=== PATIENT | female | born 1940 | race Native Hawaiian/Other Pacific Islander ===

== ENCOUNTER 2017-11-21 13:48 | Outpatient (CLI) | payer MEDICARE ==
--- NOTE | 2017-11-22 11:26 | Mammography Report ---
Procedure Date: 11/21/2017 Accession Number: [id number] / [id number] Procedure: [facility] - Screening Mammo Dig Bilat CPT Code: FULL RESULT: EXAM: Screening Mammo Dig Bilat DATE: 11/21/2017 2:08 PM CLINICAL HISTORY: 77-year-old female presents for screening. TECHNIQUE: Bilateral CC and MLO views were obtained. COMPARISON: 11/10/2015, 11/11/2014, 11/22/2013, 11/10/2012. FINDINGS: The breasts demonstrate scattered fibroglandular densities bilaterally. Typically benign coarse calcifications are seen in both breasts. Vascular calcifications are seen in the left breast, typically benign. No suspicious masses, clustered microcalcifications, or regions of architectural distortion are identified. IMPRESSION: Benign findings RECOMMENDATION: Routine annual screening unless otherwise clinically indicated. BIRADS CATEGORY 2: Benign findings STANDARD QUALIFYING STATEMENTS: 1. This examination was reviewed with the aid of Computer-Aided Detection (CAD). 2. A negative or benign imaging report should not delay biopsy if clinically suspicious findings are present. Consider surgical consultation if warrented. More than 5% of cancers are not identified by imaging. 3. Dense breasts may obscure an underlying neoplasm.
== END 2017-11-21 13:49 | disposition home or self-care (01) ==
LOC: DI 13:48
PROVIDERS: ATTEND Internal Medicine
DX: Z12.31 Encounter for screening mammogram for malignant neoplasm of breast (principal)
CPT/HCPCS: 77067

== ENCOUNTER 2019-02-19 13:26 | Outpatient (CLI) | payer MEDICARE, OTHER ==
--- NOTE | 2019-02-19 14:24 | XRAY Report ---
Reason: CHEST PAIN, UNSPECIFIED Procedure Date: 02/19/2019 Accession Number: [id number] / [id number] Procedure: XR - Chest 2 View X-Ray CPT Code: 95705 FULL RESULT: EXAM: CHEST RADIOGRAPHY EXAM DATE: 02/19/2019 01:35 PM HISTORY: CHEST PAIN, UNSPECIFIED COMPARISON: NONE TECHNIQUE: Two Views FINDINGS: Lungs/Pleura: There is hazy increased density at the right upper lobe concerning for pneumonia. Clinically correlate. The lungs are otherwise essentially clear. No pleural effusion. Cardiomediastinal silhouette: Unremarkable accounting for technique. Other: Thoracolumbar level dextroconvex scoliosis. IMPRESSION: Right upper lobe opacity most consistent with pneumonia. Follow-up to radiographic resolution is recommended. RADIA
== END 2019-02-19 13:27 | disposition home or self-care (01) ==
LOC: DI 13:26
PROVIDERS: ATTEND Internal Medicine
DX: R91.8 Other nonspecific abnormal finding of lung field (principal)
CPT/HCPCS: 71046

== ENCOUNTER 2019-04-09 16:12 | Outpatient (CLI) | payer MEDICARE, OTHER ==
--- NOTE | 2019-04-10 20:11 | XRAY Report ---
Reason: COUGH, OTHER NONSPECIFIC ABNORMAL FINDING OF LUNG Procedure Date: 04/09/2019 Accession Number: [id number] / [id number] Procedure: XR - Chest 2 View X-Ray CPT Code: 84044 Final Report FULL RESULT: EXAM: CHEST RADIOGRAPHY EXAM DATE: 04/09/2019 04:27 PM. CLINICAL HISTORY: COUGH, OTHER NONSPECIFIC ABNORMAL FINDING OF LUNG. COMPARISON: CHEST 2 VIEW 02/19/2019 1:29 PM. TECHNIQUE: 2 views. FINDINGS: Lungs/Pleura: Biapical scarring. Left basilar scarring. No effusion. No pneumothorax. Calcified granulomas. Mediastinum: Heart and mediastinal contours are unremarkable. Other: DJD spine IMPRESSION: No active cardiopulmonary disease RADIA
== END 2019-04-09 16:13 | disposition home or self-care (01) ==
LOC: DI 16:12
PROVIDERS: ATTEND Internal Medicine
DX: R05 Cough (principal); R91.8 Other nonspecific abnormal finding of lung field
CPT/HCPCS: 71046

== ENCOUNTER 2020-07-05 12:23 | Outpatient (CLI) | payer MEDICARE, OTHER ==
--- NOTE | 2020-07-06 09:47 | Mammography Report ---
BILATERAL DIGITAL SCREENING MAMMOGRAM 3D/2D: 07/05/2020 CLINICAL: Routine screening. Comparison is made to exams dated: 11/21/2017 mammogram, 11/10/2015 mammogram, 11/11/2014 mammogram, 11/24 mammogram, 11/10/2012 mammogram, and 09/14/2011 mammogram - [facility]. The tis rebeka of both breasts is predominantly fatty. There is a new 0.5 cm x 0.3 cm focal asymmetry with an indistinct margin in the left breast at 1 o'cl ock anterior depth 6 cm from the nipple. No other significant masses, calcifications, or other findings are seen in either breast. IMPRESSION: INCOMPLETE: NEEDS ADDITIONAL IMAGING EVALUATION The new 0.5 cm x 0.3 cm focal asymmetry in the left breast is indeterminate. Additional views with p ossible ultrasound are recommended. This exam was interpreted at Station ID: [id number]. NOTE: For mammograms, a report in lay terms will be sent to the patient. Approximately 15% of breast malignancies will not be visualized mammographically. In the management of a palpable breast mass, a negative mammogram must not discourage biopsy of a clinically suspicious lesion. Electronically Signed By: Mario Alberto Powers acr/:07/05/2020 15:20:16 ACR BI-RADS Category 0: Incomplete 3340F PARENCHYMAL PATTERN: (F) - The breast(s) demonstrate(s) diffuse fatty replacement. BI-RADS CATEGORY: (0) - 0 Mammo and [place] [id number] Immediate follow-up LATERALITY: (L)
== END 2020-07-05 12:24 | disposition home or self-care (01) ==
LOC: DI 12:23
PROVIDERS: ATTEND Internal Medicine
DX: Z12.31 Encounter for screening mammogram for malignant neoplasm of breast (principal); N64.89 Other specified disorders of breast

== ENCOUNTER 2020-08-30 10:40 | Outpatient (CLI) | payer MEDICARE ==
--- NOTE | 2020-08-31 13:09 | Ultrasound Report ---
LIMITED ULTRASOUND OF LEFT BREAST: 08/30/2020 CLINICAL: Patient returns today to evaluate a focal asymmetry in the left breast. Comparison is made to exams dated: 08/30/2020 mammogram, 07/05/2020 mammogram, 11/21/2017 mammogram, 11/09 mammogram, 11/24/2013 mammogram, and 11/11/2014 mammogram - [facility]. . Color flow and real-time ultrasound of the left breast 2-4 o'clock region were performed. No ultraso und abnormality to correspond with the mammographic abnormality is identified. Banerjee scale images of t he real-time examination were reviewed. IMPRESSION: PROBABLY BENIGN There are no abnormalities seen in the left breast to correspond with the mammography findings at 2, 3, and 4 o'clock. The mammographic finding partially resolved with additional views, however since t his is a new asymmetry, follow-up mammogram and possible ultrasound in 6 months is recommended This exam was interpreted at Station ID: [id number]. Electronically Signed By: Mario Alberto Powers acr/:08/30/2020 13:25:47 Ultrasound BI-RADS: 3 Probably benign BI-RADS CATEGORY: (3) - 3 Mammo and US [id number] 7 month follow-up LATERALITY: (L)
--- NOTE | 2020-08-31 13:09 | Mammography Report ---
UNILATERAL LEFT DIGITAL DIAGNOSTIC MAMMOGRAM 3D/2D: 08/30/2020 CLINICAL: Patient returns for additional imaging over a suspected mass in the left breast. Comparison is made to exams dated: 07/05/2020 mammogram, 11/21/2017 mammogram, 11/10/2015 mammogram, 2014 mammogram, and 11/24/2013 mammogram - [facility]. The tissue of left breast is predominantly fatty. There is a 0.3 cm x 0.4 cm oval high density asymmetry in the left breast middle depth central to the nipple seen on the craniocaudal view only 7 cm from the nipple. This is seen on additional views but is less prominent. No other significant masses or calcifications are seen in the breast. IMPRESSION: INCOMPLETE: NEEDS ADDITIONAL IMAGING EVALUATION The 0.3 cm x 0.4 cm oval high density asymmetry in the left breast is indeterminate. An ultrasound i s recommended. US will be performed and dictated separately. This exam was interpreted at Station ID: [id number]. NOTE: For mammograms, a report in lay terms will be sent to the patient. Approximately 15% of breast malignancies will not be visualized mammographically. In the management of a palpable breast mass, a negative mammogram must not discourage biopsy of a clinically suspicious lesion. Electronically Signed By: Mario Alberto Powers acr/:08/30/2020 13:21:28 ACR BI-RADS Category 0: Incomplete 3340F PARENCHYMAL PATTERN: (F) - The breast(s) demonstrate(s) diffuse fatty replacement. BI-RADS CATEGORY: (0) - 0 Ultrasound [id number] Immediate follow-up LATERALITY: (B)
== END 2020-08-30 10:41 | disposition home or self-care (01) ==
LOC: DI 10:40
PROVIDERS: ATTEND Internal Medicine
DX: R92.8 Other abnormal and inconclusive findings on diagnostic imaging of breast (principal)

== ENCOUNTER 2020-09-15 14:36 | Outpatient (CLI) | payer MEDICARE ==
[2020-09-15 15:00] LABS: CALCIUM 9.5 mg/dL (8.5-10.3); CREATININE 1.1 mg/dL (0.4-1.0); POTASSIUM 3.3 mmol/L (3.5-5.0)
[2020-09-15 20:17] LABS: ESTIMATED AVERAGE GLUCOSE 171 mg/dL (70-100); HEMOGLOBIN A1c% 7.6 % (4.27-6.07)
== END 2020-09-15 14:37 | disposition home or self-care (01) ==
LOC: LAB 14:36
PROVIDERS: ATTEND Internal Medicine
DX: E11.9 Type 2 diabetes mellitus without complications (principal); Z79.899 Other long term (current) drug therapy
CPT/HCPCS: 36415; 80048; 83036

== ENCOUNTER 2021-08-24 08:00 | Outpatient (CLI) | payer MEDICARE ==
[2021-08-24 17:21] LABS: BASOPHILS # (AUTO) 0.1 10^3/uL (0.0-0.1); BASOPHILS % (AUTO) 0.9 %; EOSINOPHILS # (AUTO) 0.4 10^3/uL (0.0-0.7); EOSINOPHILS % (AUTO) 6.6 %; HCT - HEMATOCRIT 41.2 % (37.0-47.0); HGB - HEMOGLOBIN 14.3 g/dL (12.0-16.0); LYMPHOCYTES # (AUTO) 2.5 10^3/uL (1.5-3.5); LYMPHOCYTES % (AUTO) 37.1 %; MEAN CORPUSCULAR HEMOGLOBIN 31.6 pg (27.0-31.0); MEAN CORPUSCULAR HGB CONC 34.7 g/dL (32.0-36.0); MEAN CORPUSCULAR VOLUME 90.9 fL (81.0-99.0); MEAN PLATELET VOLUME 9.3 fL (7.9-10.8); MONOCYTES # (AUTO) 0.6 10^3/uL (0.0-1.0); MONOCYTES % (AUTO) 8.9 %; NEUTROPHILS # (AUTO) 3.1 10^3/uL (1.5-6.6); NEUTROPHILS % (AUTO) 46.3 %; PLT - PLATELET COUNT 271 10^3/uL (130-450); RED BLOOD COUNT 4.53 10^6/uL (4.20-5.40); RED CELL DISTRIBUTION WIDTH 12.3 % (12.0-15.0); WHITE BLOOD COUNT 6.7 x10^3/uL (4.8-10.8)
[2021-08-24 17:27] LABS: MICROALBUM/CREATININE RATIO,UR 6.2 ug/mg (<30.0); MICROALBUMIN,URINE 0.5 mg/dL (0-300.0)
[2021-08-24 17:35] LABS: ALBUMIN 4.9 g/dL (3.2-5.5); ALBUMIN/GLOBULIN RATIO 1.5 (1.0-2.2); ALKALINE PHOSPHATASE 53 IU/L (42-121); ALT ALANINE AMINOTRANSFERASE 37 IU/L (10-60); AST ASPARTATE AMINOTRANSFERASE 33 IU/L (10-42); BILIRUBIN,TOTAL 1.1 mg/dL (0.2-1.0); BUN - BLOOD UREA NITROGEN 18 mg/dL (6-20); CALCIUM 9.9 mg/dL (8.5-10.3); CARBON DIOXIDE - CO2 27 mmol/L (21-32); CHLORIDE 101 mmol/L (101-111); CHOL/HDL RATIO 4.7 (<4.4); CHOLESTEROL 223 mg/dL; CREATININE 1.1 mg/dL (0.4-1.0); GFR - MDRD 48 (>89); GLUCOSE 111 mg/dL (70-100); HDL CHOLESTEROL 47 mg/dL; LDL CHOLESTEROL,CALCULATED 114 mg/dL; LDL/HDL RATIO 2.4 (<4.4); POTASSIUM 3.5 mmol/L (3.5-5.0); SODIUM 140 mmol/L (135-145); TOTAL PROTEIN 8.2 g/dL (6.7-8.2); TRIGLYCERIDES 309 mg/dL; VLDL CHOLESTEROL 62 mg/dL
== END 2021-08-24 23:59 | disposition home or self-care (01) ==
LOC: LAB.R 08:00
PROVIDERS: ATTEND Internal Medicine
DX: Z00.00 Encounter for general adult medical examination without abnormal findings (principal); E11.9 Type 2 diabetes mellitus without complications; E03.9 Hypothyroidism, unspecified; J30.2 Other seasonal allergic rhinitis; Z79.899 Other long term (current) drug therapy
CPT/HCPCS: 80053; 80061; 82043; 82570; 83721; 84443; 85025

== ENCOUNTER 2022-10-16 10:10 | Outpatient (CLI) | payer MEDICARE ==
--- NOTE | 2022-10-16 13:38 | Ultrasound Report ---
PROCEDURE: Abdomen Limited INDICATIONS: ELEVATED LIVER ENZYMES TECHNIQUE: Real-time focused scanning was performed of the abdomen, with image documentation. COMPARISONS: None. FINDINGS: Liver: Liver is normal in size and diffusely increased in echogenicity. A simple cyst is seen in the medial right hepatic lobe measuring 2.4 x 2.0 x 2.3 cm. Gallbladder: Cholelithiasis without evidence of acute cholecystitis. Biliary ducts: Intrahepatic bile ducts are non-dilated. Extrahepatic bile duct caliber measures 4.5 mm. Normal is 6-7 mm or less in diameter, or 10 mm or less post-cholecystectomy. Pancreas: Visualized portions of the pancreas are sonographically normal. Right kidney: Normal in size and echotexture. Right kidney measures 9.1 cm long. No hydronephrosis o r nephrolithiasis. No solid masses. No complex renal cystic lesions which require follow-up. Aorta: Visualized aorta is normal in caliber at less than 3 cm. IVC: Intrahepatic inferior vena cava is patent. Miscellaneous: No free abdominal fluid. IMPRESSION: 1.Cholelithiasis without signs of acute cholecystitis. 2.Diffusely increased hepatic echogenicity is nonspecific, but most commonly encountered in the setti ng of hepatic steatosis. However, other causes of hepatocellular disease are not excluded. Recommend clinical correlation. Reviewed by: Babatunde Schroeder MD on 10/16/2022 1:36 PM PDT Approved by: Babatunde Schroeder MD on 10/16/2022 1:36 PM PDT Station ID: [id number]
== END 2022-10-16 10:11 | disposition home or self-care (01) ==
LOC: DI 10:10
PROVIDERS: ATTEND Internal Medicine
DX: R74.8 Abnormal levels of other serum enzymes (principal); K80.20 Calculus of gallbladder without cholecystitis without obstruction

== ENCOUNTER 2022-10-23 10:08 | Outpatient (CLI) | payer MEDICARE ==
--- NOTE | 2022-10-24 10:37 | Mammography Report ---
BILATERAL DIGITAL DIAGNOSTIC MAMMOGRAM 3D/2D: 10/23/2022 CLINICAL: Short term follow up of the left breast, due for bilateral imaging. Comparison is made to exams dated: 08/30/2020 mammogram, 07/05/2020 mammogram, 11/21/2017 mammogram, 11/09 mammogram, and 11/11/2014 mammogram - [facility]. Both breasts are almost entirely fatty (category a/<25% glandular tissue). There is a stable benign oval focal asymmetry with a circumscribed margin in the left breast at 2 o'c lock middle depth. This was not seen on the prior ultrasound. No other significant masses, calcifications, or other findings are seen in either breast. IMPRESSION: BENIGN There is no mammographic evidence of malignancy. Left breast focal asymmetry demonstrates long-term stability and is benign. A 1 year screening mammogram is recommended. Exam findings were conveyed to the patient. Based on the Tyrer Cuzick model (a risk assessment model) the patients lifetime risk is 0.4% and her 10 year risk is 0.0%. According to the ACR, ACS, and NCCN guidelines, an annual breast MRI exam stefano g with mammogram is recommended if the patients lifetime risk is 20% or greater. This exam was interpreted at Station ID: [id number]. NOTE: For mammograms, a report in lay terms will be sent to the patient. Approximately 15% of breast malignancies will not be visualized mammographically. In the management of a palpable breast mass, a negative mammogram must not discourage biopsy of a clinically suspicious lesion. Electronically Signed By: Richie Muñoz M.D. slc/:10/23/2022 11:51:53 ACR BI-RADS Category 2: Benign Finding(s) 3342F PARENCHYMAL PATTERN: (F) - The breast(s) demonstrate(s) diffuse fatty replacement. BI-RADS CATEGORY: (2) - 2 Mammogram [id number] 1 year screening LATERALITY: (B)
== END 2022-10-23 10:09 | disposition home or self-care (01) ==
LOC: DI 10:08
PROVIDERS: ATTEND Internal Medicine
DX: D24.2 Benign neoplasm of left breast (principal)

== ENCOUNTER 2023-12-03 12:59 | Outpatient (CLI) | payer MEDICARE ==
--- NOTE | 2023-12-04 10:49 | Mammography Report ---
BILATERAL DIGITAL SCREENING MAMMOGRAM 3D/2D WITH EXAGGERATED CC: 12/03/2023 CLINICAL: Routine screening. Comparison is made to exams dated: 10/23/2022 mammogram, 08/30/2020 mammogram, 07/05/2020 mammogram, 11/03 mammogram, 11/10/2015 mammogram, and 11/11/2014 mammogram - [facility]. Both breasts are almost entirely fatty (category a/<25% glandular tissue). No significant masses, calcifications, or other findings are seen in either breast. There has been no significant interval change. IMPRESSION: NEGATIVE There is no mammographic evidence of malignancy. A 1 year screening mammogram is recommended. Based on the Tyrer Cuzick model (a risk assessment model) the patient's lifetime risk is 0.3% and her 10 year risk is 0.0%. According to the ACR, ACS, and NCCN guidelines, an annual breast MRI exam stefano g with mammogram is recommended if the patient's lifetime risk is 20% or greater. This exam was interpreted at Station ID: [id number]. NOTE: For mammograms, a report in lay terms will be sent to the patient. Approximately 15% of breast malignancies will not be visualized mammographically. In the management of a palpable breast mass, a negative mammogram must not discourage biopsy of a clinically suspicious lesion. Electronically Signed By: Mica wyatt/rachele:12/03/2023 18:02:54 letter sent: No_Letter ACR BI-RADS Category 1: Negative 3341F PARENCHYMAL PATTERN: (F) - The breast(s) demonstrate(s) diffuse fatty replacement. BI-RADS CATEGORY: (1) - 1 RECOMMENDATION: (ANNUAL) - Recommend routine annual screening mammography. [id number] 1 year screening LATERALITY: (B)
== END 2023-12-03 13:00 | disposition home or self-care (01) ==
LOC: DI 12:59
PROVIDERS: ATTEND Internal Medicine
DX: Z12.31 Encounter for screening mammogram for malignant neoplasm of breast (principal)